=== PATIENT | male | born 1980 | race Caucasian/White ===

== ENCOUNTER 2019-09-10 15:08 | Emergency (ER) | payer MEDICARE ==
[2019-09-10 15:19] VITALS: Wt 163.6 kg
[2019-09-10] MEDS ORDERED: EC-NAPROSYN500 MG PO (17:39)
== END 2019-09-10 18:01 | disposition home or self-care (01) ==
LOC: D.ER 15:08
DX: M79.671 Pain in right foot (principal); S93.401A Sprain of unspecified ligament of right ankle, initial encounter; W19.XXXA Unspecified fall, initial encounter; Y93.9 Activity, unspecified; Y92.9 Unspecified place or not applicable